=== PATIENT | male | born 1995 | race African-American/Black ===

== ENCOUNTER → 2016-08-01 05:50 | Emergency (ER) | payer OTHER | END | disposition left against medical advice (07) | LOC: CED 05:50 | DX: Z53.21 Procedure and treatment not carried out due to patient leaving prior to being seen by health care provider (principal) ==

== ENCOUNTER 2016-08-06 17:43 | Emergency (ER) | payer SELFPAY ==
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
== END 2016-08-06 18:35 | disposition home or self-care (01) ==
LOC: CFTX 17:43
DX: S29.012A Strain of muscle and tendon of back wall of thorax, initial encounter (principal); J45.909 Unspecified asthma, uncomplicated; V49.50XA Passenger injured in collision with unspecified motor vehicles in traffic accident, initial encounter; Y93.89 Activity, other specified; Y92.410 Unspecified street and highway as the place of occurrence of the external cause
CPT/HCPCS: 71020; 99283; J0780